=== PATIENT | male | born 1985 | race Caucasian/White ===

== ENCOUNTER 2016-08-02 20:03 | Emergency (ER) | payer BC ==
--- NOTE | ~2016-08-02 | ER ---
PATIENT'S NAME: KOSTA KNOTT [facility] AGE: 31 Y [address] ROOM: [place] [address] LOCATION: [facility] ADMIT DATE: 08/02/2016 ER/Outpatient Report DISCHARGE DATE: 08/02/2016 FAMILY PHYSICIAN: PHYSICIAN, NO ATTENDING PHYSICIAN: Dontrell Bravo Admission date and time documented in the medical record. I saw the patient at 2015 hours. CHIEF COMPLAINT: Left flank, left upper quadrant abdominal pain. HISTORY OF PRESENT ILLNESS: The patient is a 31-year-old male, who was carrying a piece of plywood about a week ago when a wind jackie caught the plywood and hit him in the left flank area. He has had up and down pain since that time, worse today. Presented at [facility], evaluation was performed, which was normal. His personal physician wanted CT scan of the chest, abdomen, and pelvis, and was transferred to the emergency room for evaluation. On arrival, the patient had left flank pain, kind of underneath his left anterior lower rib cage. He has not had any abdominal distention, nausea, vomiting, diarrhea, or constipation. No chest pain or shortness of breath. He is not painful to palpation, but it hurts when he does move in certain positions. No fever, chills, sweats, coughs, colds, or flus. No lightheadedness, dizziness, syncope, or near syncope. No headache, eyes, ears, nose, throat, neck, or spine pain. No real shortness of breath. No skin eruptions or rash. No bruising or contusions. No joint or muscle swelling, redness, or pain. No endocrine problems, neuro changes, or psych issues. HOME MEDICATIONS: None. ALLERGIES: NONE. SOCIAL HISTORY: Nonsmoker. Occasional intake of alcohol. SIGNIFICANT PAST MEDICAL HISTORY: Negative. OPERATIONS: None. REVIEW OF SYSTEMS: PATIENT'S NAME: KOSTA KNOTT [facility] AGE: 31 Y [address] ROOM: [place] [address] LOCATION: [facility] ADMIT DATE: 08/02/2016 ER/Outpatient Report DISCHARGE DATE: 08/02/2016 FAMILY PHYSICIAN: PHYSICIAN, NO ATTENDING PHYSICIAN: Dontrell Bravo All systems reviewed by me are negative with the exception of those discussed in the history of present illness. PHYSICAL EXAMINATION: VITAL SIGNS: Temperature 98.6 tympanic, pulse 85, respirations 16, blood pressure 125/75, O2 saturation on room air is 97%. HEAD: Normocephalic. Eyes, ears, nose, and throat clear. Mucous membranes are moist. NECK: Negative. SPINE: Negative. LUNGS: Clear. No rales, rhonchi, or wheezes. HEART: Regular. Pulses are palpable. No deformity of his rib cage. No tenderness over rib cage, left or right. ABDOMEN: Soft, nondistended, nontender. Good bowel tones. No organomegaly or abnormal mass palpable. No CVA tenderness. PELVIS: Stable, nontender. EXTREMITIES: No peripheral edema, cyanosis, or deformity. NEUROVASCULAR: Intact. SKIN: Clear. No skin eruptions or rash. LABORATORY DATA AND X-RAYS: CT scan of the chest showed no intrathoracic abnormalities or mediastinal changes, no pneumothorax, no pulmonary contusions, no pleural effusions, no pericardial effusion. CT scan of the abdomen showed no solid organ injuries. No free air or free fluid. Spleen was normal. Bile was normal. Pancreas was normal. No abnormalities in the pelvis. All CT scans were read by Radiology, see dictated transcribed report. IMPRESSION: 1. Left flank pain, side pain, etiology uncertain but most likely musculoskeletal. 2. Mild urticaria rash, etiology uncertain, but most likely secondary to allergic response to contrast dye. PLAN: The patient was given 50 mg of Benadryl IV in the emergency room. The patient was also given 1 L normal saline IV in the emergency room. Discharged home. Observation. Activity as tolerated. Fluids and diet as tolerated. Ice, heat, or combination of ice followed by heat to sore areas intermittently as needed. Tylenol or ibuprofen or Aleve as needed for pain. Follow up with personal physician as needed. Discussion ensued with the patient concerning my findings and recommendations, he understands. PATIENT'S NAME: KOSTA KNOTT [facility] AGE: 31 Y [address] ROOM: [place], [place] [address] LOCATION: [facility] ADMIT DATE: 08/02/2016 ER/Outpatient Report DISCHARGE DATE: 08/02/2016 FAMILY PHYSICIAN: PHYSICIAN, NO ATTENDING PHYSICIAN: Dontrell Bravo MD JULEE HOWELL/vahe /[id number] d: 08/03/16 0003 t: 08/03/16 1811, OUTPATIENT REPORT
== END 2016-08-02 21:14 | disposition disaster alternative care site (69) ==
LOC: GACC 20:03
DX: R10.9 Unspecified abdominal pain (principal); L50.9 Urticaria, unspecified
CPT/HCPCS: J1200; J7030; Q9967